=== PATIENT | female | born 1940 | race African-American/Black ===

== ENCOUNTER 2020-01-18 14:47 | Inpatient (IN) ==
[2020-01-18 16:11] LABS: Basophils % 0.1 % (0.0-0.8); Eosinophils % 0.1 % (0.00-10.9); Hematocrit 49.2 VOL% (35.7-47.0); Hemoglobin 15.4 GM/DL (12.0-16.0); Immature Granulocytes % 0.9 %; Immature Granulocytes Absolute 0.12 #; Lymphocytes # 1.1 10*3/uL (1.4-4.0); Lymphocytes % 7.8 % (21.3-54.2); Mean Corpuscular HGB Conc 31.3 GM/DL (32-36); Mean Corpuscular Volume 87.2 FL (87-102); Monocytes % 6.5 % (1.7-12.7); Neutrophils % 84.6 % (38.7-73.9); Platelet Count 270 T/CUMM (130-400); Red Blood Count 5.64 MC/CUMM (3.8-5.5); Red Cell Distribution Width 15.2 % (9.3-17.3); White Blood Count 13.5 T/CUMM (4-12)
[2020-01-18 16:55] LABS: Albumin 2.3 G/DL (3.4-5.0); Bilirubin,Total 0.5 MG/DL (0.2-1.0); Calcium 9.5 MG/DL (8.5-10.1); Osmolality,Calculated 392.6 MOS/KG (273-304); Total Protein 7.4 G/DL (6.4-8.3)
[2020-01-18 17:13] LABS: Apearance,Urine Slightly Cloudy (Clear); Bilirubin,Urine Negative (Negative); Blood, Urine 0.03 mg/dL (Negative); Glucose,Urine (UA) Negative (Negative); Ketones,Urine Negative (Negative); Nitrite,Urine Negative (Negative); Protein,Urine 100 MG/DL; Urine Color Yellow (Yellow); Urine Urobilinogen 0.2 EU/DL (0.2-1.0)
[2020-01-18 17:14] LABS: Bacteria,Urine 2+ /HPF (Few); RBC,Urine 5 /HPF (0-4); Squamous Epithelial Cell,Urine Occasional /HPF (0-10); Transitional Epi Cells,Urine None Seen /HPF (<1); WBC,Urine 2 /HPF (0-6)
[2020-01-18] MEDS ORDERED: hydrALAZINE 20 MG/1 ML VIAL IV PRN (17:56)
[2020-01-18] MEDS ORDERED: ONDANSETRON 4 MG/2 ML VIAL IV PRN (17:56)
[2020-01-18] MEDS ORDERED: SIMETHICONE CHEW 125 MG TABLET PO PRN (17:56)
[2020-01-18] MEDS ORDERED: ACETAMINOPHEN 325 MG TABLET PO PRN (17:56)
[2020-01-18] MEDS ORDERED: LACTULOSE 20 GM/30 ML UDCUP PO PRN (17:56)
[2020-01-18] MEDS ORDERED: DEXTROSE 50% 25 GM/50 ML VIAL IV PRN (17:56)
[2020-01-18] MEDS ORDERED: GLUCAGON 1 MG VIAL IM PRN (17:56)
[2020-01-18] MEDS ORDERED: BISACODYL 5 MG TABLET PO PRN (17:56)
[2020-01-18] MEDS ORDERED: DOCUSATE SODIUM 100 MG CAPSULE PO PRN (17:56)
[2020-01-18 19:49] LABS: Albumin 2.3 G/DL (3.4-5.0); Bilirubin,Total 0.5 MG/DL (0.2-1.0); Calcium 9.2 MG/DL (8.5-10.1); Ferritin 715.5 ng/ml (8-252); Osmolality,Calculated 392.7 MOS/KG (273-304); Total Protein 6.7 G/DL (6.4-8.3)
[2020-01-18] MEDS: HEPARIN 5,000 UNIT/1 ML VIAL SUBCUT SCH (21:09)
[2020-01-18] MEDS: SODIUM BICARB INJ 50 MEQ in DEXTROSE 5% 1,000 ML IV SCH (21:09)
[2020-01-18] MEDS: INSULIN REGULAR 100 UNIT/ML SUBCUT SCH (21:10)
[2020-01-19] MEDS: INSULIN REGULAR 100 UNIT/ML SUBCUT SCH ×5 (05:47→23:57)
[2020-01-19 06:02] LABS: Basophils % 0.1 % (0.0-0.8); Eosinophils % 0.1 % (0.00-10.9); Hematocrit 45.6 VOL% (35.7-47.0); Hemoglobin 14.4 GM/DL (12.0-16.0); Immature Granulocytes % 0.9 %; Lymphocytes # 0.9 10*3/uL (1.4-4.0); Mean Corpuscular HGB Conc 31.6 GM/DL (32-36); Mean Corpuscular Volume 86.2 FL (87-102); Mean Platelet Volume 11.3 FL (9.6-12.0); Monocytes % 6.2 % (1.7-12.7); NRBC # 0.03 10*3/uL; Neutrophils % 84.7 % (38.7-73.9); Platelet Count 262 T/CUMM (130-400); Red Blood Count 5.29 MC/CUMM (3.8-5.5); White Blood Count 11.4 T/CUMM (4-12)
[2020-01-19 06:32] LABS: Bilirubin,Total 1.3 MG/DL (0.2-1.0); Calcium 8.8 MG/DL (8.5-10.1); Ferritin 630.9 ng/ml (8-252); Osmolality,Calculated 397.9 MOS/KG (273-304); Total Protein 6.7 G/DL (6.4-8.3)
[2020-01-19] MEDS: HEPARIN 5,000 UNIT/1 ML VIAL SUBCUT SCH ×4 (06:37→23:57)
[2020-01-19 06:38] LABS: Free T4 (Free Thyroxine) 1.45 NG/DL (0.76-1.46); Thyroid Stimulating Hormone 1.56 uIU/ml (0.358-3.74)
[2020-01-19] MEDS: SODIUM BICARB INJ 50 MEQ in DEXTROSE 5% 1,000 ML IV SCH ×4 (06:50→17:44)
[2020-01-19] MEDS ORDERED: LORazepam 2 MG/1 ML VIAL IV ONE (07:51)
[2020-01-19 08:37] LABS: Sedimentation Rate-Westergren 57 MM/HR (0-30)
[2020-01-19] MEDS: LEVOTHYROXINE 100 MCG VIAL IV SCH (10:09)
[2020-01-19 12:35] LABS: Creatinine,Urine Random 142 MG/DL; Potassium,Urine Random 61 MMOL/L; Total Protein,Urine Random 117 MG/DL; Urea Nitrogen, Urine Random 876 MG/DL
[2020-01-19 12:37] LABS: Calcium,Urine Random < 5 MG/DL
[2020-01-20] MEDS: SODIUM BICARB INJ 50 MEQ in DEXTROSE 5% 1,000 ML IV SCH (05:51)
[2020-01-20 05:55] LABS: Basophils % 0.2 % (0.0-0.8); Eosinophils # 0.1 10*3/uL (0.0-0.87); Eosinophils % 0.8 % (0.00-10.9); Hematocrit 44.1 VOL% (35.7-47.0); Hemoglobin 14.1 GM/DL (12.0-16.0); Immature Granulocytes % 1.2 %; Immature Granulocytes Absolute 0.12 #; Lymphocytes # 1.1 10*3/uL (1.4-4.0); Lymphocytes % 10.8 % (21.3-54.2); Mean Corpuscular Volume 84.2 FL (87-102); Mean Platelet Volume 11.7 FL (9.6-12.0); NRBC # 0.03 10*3/uL; Platelet Count 213 T/CUMM (130-400); Red Blood Count 5.24 MC/CUMM (3.8-5.5); Red Cell Distribution Width 14.6 % (9.3-17.3)
[2020-01-20] MEDS: LEVOTHYROXINE 100 MCG VIAL IV SCH (06:32)
[2020-01-20] MEDS: INSULIN REGULAR 100 UNIT/ML SUBCUT SCH (06:33)
[2020-01-20] MEDS: HEPARIN 5,000 UNIT/1 ML VIAL SUBCUT SCH (06:54)
[2020-01-20 06:55] LABS: Albumin 1.9 G/DL (3.4-5.0); Bilirubin,Total 0.8 MG/DL (0.2-1.0); Calcium 8.4 MG/DL (8.5-10.1); Ferritin 627.7 ng/ml (8-252); Osmolality,Calculated 372.9 MOS/KG (273-304); Total Protein 6.5 G/DL (6.4-8.3)
[2020-01-20 07:10] LABS: Sedimentation Rate-Westergren 57 MM/HR (0-30)
[2020-01-20] MEDS ORDERED: LORazepam 2 MG/1 ML VIAL IV ONE (08:48)
[2020-01-20] MEDS: MORPHINE 4 MG/1 ML VIAL IV PRN ×2 (11:09→15:55)
[2020-01-20] MEDS: LORazepam 2 MG/1 ML VIAL IV PRN (13:36)
[2020-01-21] MEDS: LORazepam 2 MG/1 ML VIAL IV PRN (01:44)
[2020-01-21] MEDS: MORPHINE 4 MG/1 ML VIAL IV PRN ×2 (09:41→17:10)
[2020-01-22] MEDS ORDERED: LORazepam 2 MG/1 ML VIAL ONE (04:15)
[2020-01-22] MEDS: LORazepam 2 MG/1 ML VIAL IV PRN ×2 (04:25→15:13)
[2020-01-22] MEDS: MORPHINE 4 MG/1 ML VIAL IV PRN ×3 (12:19→20:05)
[2020-01-23 07:17] VITALS: BP 82/47
[2020-01-23] MEDS ORDERED: fentaNYL 25 MCG/HR PATCH TRANSDERM SCH (09:00)
[2020-01-23] MEDS: MORPHINE 4 MG/1 ML VIAL IV PRN ×4 (10:48→15:06)
[2020-01-23] MEDS: LORazepam 2 MG/1 ML VIAL IV PRN (11:38)
[2020-01-23] MEDS ORDERED: TUBERCULIN SKIN TEST 0.1 ML SYRINGE INTRADERM ONE (13:00)
== END 2020-01-23 15:50 | disposition expired | DRG 177 ==
LOC: EDUNIT# → EDBD → N.ED 14:47 → SUATTDRO 17:51 → N.EDINP 17:51 → N.2E 20:05
PROVIDERS: ADMIT Hospitalist; ATTEND Family Medicine